=== PATIENT | female | born 1970 | race Caucasian/White ===

== ENCOUNTER 2022-01-04 22:23 | Emergency (ER) | payer MEDICAID ==
[2022-01-04] MEDS ORDERED: Sodium Chloride 0.9% 10 ML Syringe FLUSH PRN (22:53)
[2022-01-04] MEDS ORDERED: HYDROmorphone 0.5 MG/0.5 ML Syringe IVPUSH ONE (23:07)
[2022-01-05] MEDS ORDERED: Iopamidol 612 MG/ML 100 ML Bottle IV STA (00:06)
[2022-01-05] MEDS ORDERED: Sodium Chloride 0.9% 75 ML IV STA (00:06)
[2022-01-05] MEDS ORDERED: cefTRIAXone 2 GM in Sodium Chloride 0.9% 50 ML IV ONE (01:34)
== END 2022-01-05 02:40 | disposition home or self-care (01) ==
LOC: JP.ED 22:23
DX: S80.12XA Contusion of left lower leg, initial encounter (principal); L03.116 Cellulitis of left lower limb; M87.9 Osteonecrosis, unspecified; R60.0 Localized edema; W10.9XXA Fall (on) (from) unspecified stairs and steps, initial encounter; Y92.009 Unspecified place in unspecified non-institutional (private) residence as the place of occurrence of the external cause
CPT/HCPCS: 36415; 73701-LT; 80053; 83605; 85025; 86140; 87040; 96365; 96375; 99283; 99284-25; J0696; J1170; J3490; Q9967

== ENCOUNTER 2022-01-07 07:20 | Day surgery (SDC) | payer MEDICAID ==
[2022-01-07] MEDS ORDERED: Lactated Ringers 1,000 ML IV SCH (08:00)
[2022-01-07] MEDS ORDERED: Nozin Nasal Sanitizer NASBOTH ONE (08:00)
[2022-01-07] MEDS ORDERED: Propofol 200 MG/20 ML SDV ONE (08:25)
[2022-01-07] MEDS ORDERED: fentaNYL 100 MCG/2 ML SDV ONE ×2 (08:26→10:01)
[2022-01-07] MEDS ORDERED: Midazolam 1 MG/ML 2 ML SDV ONE (08:26)
[2022-01-07] MEDS ORDERED: Dexamethasone 4 MG/ML SDV ONE (08:36)
[2022-01-07] MEDS ORDERED: Ondansetron 4 MG/2 ML SDV ONE (08:36)
[2022-01-07] MEDS ORDERED: Bupivacaine 0.5% 30 ML SDV ONE (08:57)
[2022-01-07] MEDS ORDERED: Morphine 2 MG/ML SYRINGE IVPUSH ONE ×2 (10:42→11:06)
[2022-01-07] MEDS ORDERED: Acetaminophen/oxyCODONE 325-5 MG Tab PO PRN (11:44)
== END 2022-01-07 12:44 | disposition home or self-care (01) ==
LOC: JP.SDS 07:20
PROVIDERS: ATTEND Specialist
DX: S80.12XA Contusion of left lower leg, initial encounter (principal); X58.XXXA Exposure to other specified factors, initial encounter
CPT/HCPCS: 36415; 80053; 85027; 87070; 87075; 87077; 87186; 87205; A9270-GY; J0690; J1100; J2250; J2270; J2405; J2704; J3010; J3490; J7120

== ENCOUNTER 2022-11-25 06:15 | Day surgery (SDC) | payer MEDICAID ==
[2022-11-25] MEDS ORDERED: Nozin Nasal Sanitizer NASBOTH ONE (06:45)
[2022-11-25] MEDS ORDERED: Lactated Ringers 1,000 ML IV SCH (06:45)
[2022-11-25 07:12] LABS: ESTIMATED GFR 61 mL/min (>60)
[2022-11-25] MEDS ORDERED: Propofol 200 MG/20 ML SDV ONE ×4 (07:45→09:43)
[2022-11-25] MEDS ORDERED: Midazolam 1 MG/ML 2 ML SDV ONE ×2 (07:45→08:41)
[2022-11-25] MEDS ORDERED: fentaNYL 100 MCG/2 ML SDV ONE (07:45)
[2022-11-25] MEDS ORDERED: Bupivacaine 0.5% 30 ML SDV ONE (07:47)
[2022-11-25] MEDS ORDERED: ceFAZolin 2 GM in Sodium Chloride 0.9% 50 ML IV ONE (08:00)
[2022-11-25] MEDS ORDERED: Bupivacaine 0.5% 30 ML SDV INJECT ONE (08:20)
[2022-11-25] MEDS ORDERED: Acetaminophen/oxyCODONE 325-5 MG Tab PO PRN (11:05)
== END 2022-11-25 12:50 | disposition home or self-care (01) ==
LOC: JP.SDS 06:15
PROVIDERS: ATTEND Specialist
DX: S43.431A Superior glenoid labrum lesion of right shoulder, initial encounter (principal); D69.6 Thrombocytopenia, unspecified; G89.29 Other chronic pain; M25.511 Pain in right shoulder; F41.9 Anxiety disorder, unspecified; F32.A Depression, unspecified; E66.9 Obesity, unspecified; K21.9 Gastro-esophageal reflux disease without esophagitis; Z98.890 Other specified postprocedural states; Z88.6 Allergy status to analgesic agent
CPT/HCPCS: 36415; 80053; 85025; A9270-GY; C1713; J2250; J2704; J3010; J3490; J7120

== ENCOUNTER 2023-01-28 06:18 | Day surgery (SDC) | payer MEDICAID ==
[2023-01-28] MEDS ORDERED: Sodium Chloride 0.9% 1,000 ML IV SCH (07:00)
[2023-01-28] MEDS ORDERED: Propofol 200 MG/20 ML SDV ONE (07:15)
[2023-01-28] MEDS ORDERED: Midazolam 1 MG/ML 2 ML SDV ONE (07:16)
[2023-01-28] MEDS ORDERED: fentaNYL 100 MCG/2 ML SDV ONE (07:16)
== END 2023-01-28 09:40 | disposition home or self-care (01) ==
LOC: JP.SDS 06:18
PROVIDERS: ATTEND Surgery
DX: K21.9 Gastro-esophageal reflux disease without esophagitis (principal); K31.89 Other diseases of stomach and duodenum; R10.13 Epigastric pain; K70.9 Alcoholic liver disease, unspecified; I25.2 Old myocardial infarction; F41.9 Anxiety disorder, unspecified; F32.A Depression, unspecified; D69.6 Thrombocytopenia, unspecified; E66.9 Obesity, unspecified; Z88.8 Allergy status to other drugs, medicaments and biological substances; Z68.32 Body mass index [BMI] 32.0-32.9, adult
CPT/HCPCS: 43239; 88305; J2250; J2704; J3010; J7030